=== PATIENT | female | born 1975 | race Caucasian/White ===

== ENCOUNTER → 2016-05-19 | Outpatient (CLI) | payer OTHER ==
--- NOTE | 2016-05-19 12:39 | DX ---
PA and Lateral Chest Indication: Chest pain. Comparison: None Findings: The lungs are well aerated and clear. No pneumothorax, edema, airspace consolidation or eff usion. Thoracic spine has minimal levocurvature apex at T10. No compression deformity. Impression: 1. Clear lungs. No acute process. 2. Minimal levocurvature of the thoracic spine.
== END ==
LOC: FIMAGING 12:01
PROVIDERS: ATTEND Family Medicine
DX: R07.9 Chest pain, unspecified (principal)

== ENCOUNTER → 2017-02-08 | Outpatient (CLI) | payer OTHER | LOC: FIMAGING 12:14 | PROVIDERS: ATTEND Family Medicine | DX: Z12.31 Encounter for screening mammogram for malignant neoplasm of breast (principal) | CPT/HCPCS: G0202 ==

== ENCOUNTER 2017-07-02 12:24 | Emergency (ER) | payer OTHER ==
[2017-07-02 12:32] VITALS: TEMP 96.8
--- NOTE | 2017-07-02 12:58 | EDPHY ---
H & P Stated Complaint: R pointer finger injury/lac Source: Patient Exam Limitations: No limitations - Personal History LMP (Females 10-55): Unknown Current Tetanus/Diphtheria Vaccine: Unsure Current Tetanus Diphtheria and Acellular Pertussis (TDAP): Unsure - Medical/Surgical History Hx Asthma: No Hx Chronic Respiratory Disease: No Hx Diabetes: No Hx Cardiac Disease: No Hx Renal Disease: No Hx Cirrhosis: No Hx Alcoholism: No Hx HIV/AIDS: No Hx Splenectomy or Spleen Trauma: No Other PMH: anxiety - Social History Smoking Status: Never smoked Time Seen by Provider: 07/02/17 12:54 HPI/ROS: HPI: This is a 41-year-old female who presents with Chief Complaint: R pointer finger injury/lac Location: Right pointer finger distal tip Quality: Injury Duration: 1 hr prior to arrival Signs and Symptoms: No bleeding, no radiation, no numbness, no weakness, no tingling, no incontinence, no decreased range of motion,+ swelling, + pain, no fever Timing: Acute Severity: 11/19 Context: Patient is right-hand dominant, presents with right pointer finger injury possible laceration. She reports that she was cleaning outside when a bench slammed on top of her finger wedging at between 2 pieces of wood. She felt immediate, constant, nonradiating pain. Her hands were cold at the time in she believe she did not know the extent of her injury until a few minutes later in her hands warmed up. Unsure of tetanus status. Patient took a Valium while in the waiting room due to see history of anxiety. Denies decreased range of motion/active bleeding/paresthesias/radiation. Modifying Factors: None Comment: ROS: see HPI Constitutional: No fever, no chills, no weight loss Eyes: No blurred vision Respiratory: No shortness of breath, no cough Cardiovascular: No chest pain Gastrointestinal: No nausea, no vomiting no diarrhea Genitourinary: No dysuria Extremities: No myalgias Neurologic: No weakness, no numbness Skin: No rashes Hematologic: No bruising, no bleeding MEDICAL/SURGICAL/SOCIAL HISTORY: Medical history: Anxiety Surgical history: Denies Social history: Employed. CONSTITUTIONAL: Crying middle-aged white female, awake and alert, no obvious distress HEENT: Atraumatic and normocephalic. NECK: supple, no midline tenderness PULMONARY/CHEST: Symmetrical and nontender. no crepitus. Clear to auscultation bilaterally. Good air movement. No accessory muscle usage. ABDOMEN: Soft, nondistended, nontender, no ecchymosis. EXTREMITIES: 2/2 pulses, strength 5/5, right 2nd digit superficial abrasion on finger pad; no nail involvement; DIP/PIP/MCP flexion/extension intact with good light touch sensation. no deformities, no clubbing, no cyanosis or edema. NEUROLOGICAL: no focal neuro deficits. GCS 15. Light touch sensation intact. SKIN: Warm and dry, no erythema. no rash. Good capillary refill. (Cassandra Epstein) Constitutional: Initial Vital Signs Temperature (C) 36.0 C 07/02/17 12:29 Heart Rate 99 07/02/17 12:29 Respiratory Rate 22 H 07/02/17 12:29 Blood Pressure 155/88 H 07/02/17 12:29 O2 Sat (%) 98 07/02/17 12:29 O2 Delivery Mode Room Air Allergies/Adverse Reactions: amoxicillin [Amoxicillin] Allergy (Unknown, Verified 08/04/11 04:41) Hives cefpodoxime proxetil [From Vantin] Allergy (Unknown, Verified 08/04/11 04:42) Hives Sulfa (Sulfonamide Antibiotics) Allergy (Unknown, Verified 08/04/11 04:42) Hives jace Allergy (Unknown, Uncoded 08/04/11 04:43) Hives Home Medications: Medication Instructions Recorded Valium 07/02/17 Medical Decision Making - Diagnostics Imaging Results: Imaging Impressions Finger X-Ray 07/02/17 13:03 Impression: Negative. Procedures: Procedure: Digital block Verbal consent was obtained from the patient. The right 2nd digit finger pad superficial skin avulsion was anesthetized in the usual fashion using 2 mL of 0.5% bupivacaine without epinephrine The wound was irrigated, draped and explored to its base with a gloved finger. There were no deep structures involved. No tendon injury was identified. Clean sterile dressing applied. The procedure was performed by myself. (Cassandra Epstein) ED Course/Re-evaluation: Tetanus booster given No signs of neurovascular compromise/tenting of skin/compartment syndrome/ extremities and joints examined above and below area of concern and are neurovascularly intact. Sutures not indicated X-ray my read shows no fracture/dislocation. Cleaned thoroughly; Xeroform and clean sterile dressing applied. This patient was seen under the supervision of my secondary supervising physician. I evaluated care for this patient independently. Discussed this patient with Dr. Andre who did not see the patient. (Cassandra Epstein) Differential Diagnosis: Differential diagnosis includes but is not limited to contusion, phalanx fracture, tuft fracture, nail injury, laceration, nerve injury, tendon injury. (Cassandra Epstein) - Data Points Medications Given: Discontinued Medications Diphtheria/Tetanus/Acell Pertussis (Boostrix) 0.5 ml IM .ONCE ONE Stop: 07/02/17 13:04 Last Admin: 07/02/17 13:12 Dose: 0.5 ml Departure - Departure Disposition: Home, Routine, Self-Care Clinical Impression: Avulsion of skin of finger without complication Qualifiers: Encounter type: initial encounter Qualified Code(s): S61.209A - Unspecified open wound of unspecified finger without damage to nail, initial encounter Fingertip contusion Qualifiers: Encounter type: initial encounter Qualified Code(s): S60.00XA - Contusion of unspecified finger without damage to nail, initial encounter Condition: Good Instructions: Contusion in Adults (ED), Skin Avulsion (ED) Additional Instructions: Keep the dressing dry and in place for 48 hours. After 48 hours, you may remove the dressing; wash the site daily with mild soap and water; then pat dry. Take Tylenol 650 mg every 4 hours and/or Ibuprofen 600 mg every 8 hours with food as needed for pain. Apply ice for 30 minutes at a time; 2-3 times per day for the next 1-2 days. The x-rays obtained in the emergency department today demonstrate no evidence of an obvious fracture. Sometimes fractures are not obvious on the initial set of x-rays performed in the ED. For this reason, you should have repeat x-rays performed in 7-10 days if you are having any pain exclude the possibility of an occult fracture. Return to the ER immediately if you experience new or worsening pain, discoloration, numbness, tingling, or any other symptoms that concern you. Referrals: Rey Snyder [Primary Care Provider] - As per Instructions
[2017-07-02] MEDS ORDERED: TDAP ADULT 0.5 ML INJ (BOOSTRIX) IM ONE (13:03)
[2017-07-02 14:08] VITALS: BP 118/83; PULSE 72; RESP 16; O2SAT 99
== END 2017-07-02 14:07 | disposition home or self-care (01) ==
PROC: 3E0T3BZ Introduction of Anesthetic Agent into Peripheral Nerves and Plexi, Percutaneous Approach (ICD-10-PCS; principal; 2017-07-02)
DX: S61.200A Unspecified open wound of right index finger without damage to nail, initial encounter (principal); S60.021A Contusion of right index finger without damage to nail, initial encounter; Z23 Encounter for immunization; W23.0XXA Caught, crushed, jammed, or pinched between moving objects, initial encounter

== ENCOUNTER → 2017-11-30 | Outpatient (CLI) | payer OTHER | LOC: FIMAGING 13:58 | PROVIDERS: ATTEND Family Medicine | DX: M79.644 Pain in right finger(s) (principal) ==